=== PATIENT | male | born 1995 | race Caucasian/White ===

== ENCOUNTER 2017-11-12 17:57 | Emergency (ER) | payer OTHER | END 2017-11-12 19:52 | disposition home or self-care (01) | LOC: E/R 19:52 | DX: L02.211 Cutaneous abscess of abdominal wall (principal) | CPT/HCPCS: 99284; Z7502 ==

== ENCOUNTER 2018-04-17 10:21 | Emergency (ER) | payer OTHER ==
[2018-04-17] MEDS: IBUPROFEN 600 MG TAB PO (10:46)
== END 2018-04-17 11:39 | disposition home or self-care (01) ==
LOC: FTE 10:21
DX: S50.11XA Contusion of right forearm, initial encounter (principal); X58.XXXA Exposure to other specified factors, initial encounter; Y92.322 Soccer field as the place of occurrence of the external cause
CPT/HCPCS: 73090; 73090-RT; 99283-25